=== PATIENT | male | born 1960 | race Hispanic/Latino ===

== ENCOUNTER 2021-09-09 09:47 | Emergency (ER) | payer SELFPAY ==
[2021-09-09 10:41] LABS: Basophils % (Auto) 0.5 % (0.0-1.8); Eosinophils % (Auto) 0.3 % (0.0-4.3); Hematocrit 46.5 % (35.5-45.6); Hemoglobin 15.5 gm/dl (11.8-15.2); Lymphocytes # (Auto) 2.3 K/mm3 (1.2-5.4); Lymphocytes % (Auto) 23.4 % (13.4-35.0); Mean Corpuscular HGB Conc 33 % (32-34); Mean Corpuscular Volume 85 fl (84-94); Monocytes # (Auto) 0.8 K/mm3 (0.0-0.8); Monocytes % (Auto) 8.6 % (0.0-7.3); Platelet Count 262 K/mm3 (140-440); Red Blood Count 5.45 M/mm3 (3.65-5.03)
--- NOTE | 2021-09-09 10:49 | XRay Report ---
CHEST 1 VIEW INDICATION / CLINICAL INFORMATION: Chest Pain. COMPARISON: None available. FINDINGS: SUPPORT DEVICES: None. HEART / MEDIASTINUM: No significant abnormality. LUNGS / PLEURA: No significant pulmonary or pleural abnormality. No pneumothorax. ADDITIONAL FINDINGS: There are nondisplaced fractures of the fourth, fifth, and sixth posterolateral left ribs. It is difficult to discern whether fractures are acute or subacute. Please correlate with any pertinent history of recent trauma. IMPRESSION: 1. Multiple left rib fractures as described above. Please correlate with any pertinent history of tra enzo. 2. No acute pulmonary disease. Signer Name: Shruthi Eddy MD Signed: 09/09/2021 10:45 AM Workstation Name: [id number]
[2021-09-09 10:53] LABS: INR 1.03 (0.87-1.13)
[2021-09-09 10:54] LABS: Partial Thromboplastin Time 32.3 Sec. (24.2-36.6)
[2021-09-09 11:07] LABS: BUN/Creatinine Ratio 26; Blood Urea Nitrogen 21 mg/dL (9-20); Calcium 9.8 mg/dL (8.4-10.2); Hemolysis Index 7
[2021-09-09 11:09] LABS: Albumin 4.4 g/dL (3.9-5); Bilirubin,Direct 0.3 mg/dL (0-0.2)
[2021-09-09] MEDS ORDERED: ASPIRIN 81 MG TAB CHEW PO ONE (11:30)
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
[2021-09-09 20:33] VITALS: BP 126/78
--- NOTE | 2021-09-10 18:16 | Electrocardiograph Report ---
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
== END 2021-09-09 20:33 ==
LOC: ED 09:47
DX: R07.9 Chest pain, unspecified (principal); I10 Essential (primary) hypertension; E11.9 Type 2 diabetes mellitus without complications
CPT/HCPCS: 36415; 71045; 80048; 80076; 83690; 83880; 84484; 85025; 85610; 85730; 93005; 99284